=== PATIENT | male | born 1945 | race Caucasian/White ===

== ENCOUNTER → 2023-09-17 12:52 | Outpatient (REF) | payer MEDICARE, OTHER, SELFPAY | LOC: HWRCS 12:52 | PROVIDERS: ATTENDING PHYSICIAN Nuclear Medicine Nuclear Cardiology; FAMILY PHYSICIAN Family Medicine | DX: I50.33 Acute on chronic diastolic (congestive) heart failure (principal); I45.10 Unspecified right bundle-branch block; I25.10 Atherosclerotic heart disease of native coronary artery without angina pectoris | CPT/HCPCS: 93306 ==

== ENCOUNTER → 2023-10-18 09:05 | Outpatient (REF) | payer MEDICARE, OTHER, SELFPAY ==
[2023-10-18 09:38] VITALS: BP 134/69; BP_SYST 59
[2023-10-18 09:43] LABS: % Basophils 0.3 % (0-2); % Eosinophils 2.7 % (0-6); % Immature Granulocytes 0.3 % (0-0.5); % Lymphocytes 20.9 % (20.5-51.1); % Monocytes 14.2 % (1.7-9.3); % Neutrophils 61.6 % (42.2-75.2); Absolute Eosinophils 0.2 10^3/uL (0-0.7); Absolute Lymphocytes 1.6 10^3/uL (1.2-3.4); Absolute Monocytes 1.1 10^3/uL (0.1-0.6); Absolute Neutrophils 4.7 10^3/uL (1.4-6.5); Hemoglobin 12.1 g/dL (13.0-18.0); Mean Corp Hgb Conc. 33.6 g/dL (33.0-37.0); Mean Corpuscular Hgb 32.5 pg (27.0-31.0); Mean Corpuscular Volume 96.8 fL (80.0-94.0); Mean Platelet Volume 9.5 fL (7.4-10.4); Nucleated Red Blood Cells % 0 % (-); Platelet Count 198 10^3/uL (130-400); Red Blood Cell Count 3.72 10^6/uL (4.70-6.10); Red Cell Dist. Width 13.8 % (11.5-14.5); White Blood Cell Count 7.7 10^3/uL (4.8-10.8)
[2023-10-18 09:53] LABS: INR 1.14; PT 14.4 Sec (11.4-14.6)
[2023-10-18] MEDS: ATIVAN 0.5 MG IV (10:23)
[2023-10-18] MEDS: NSS (PRESERVATIVE FREE) 0.25 ML IV (10:24)
[2023-10-18 12:03] VITALS: BP 129/73
== END ==
LOC: RADI 09:05
PROVIDERS: ATTENDING PHYSICIAN Internal Medicine Hematology & Oncology; FAMILY PHYSICIAN Family Medicine; REFERRING PHYSICIAN Specialist
DX: D47.2 Monoclonal gammopathy (principal)
CPT/HCPCS: 88305; 88311; 88312; 36415; 38221; 77012; 85025; 85610; 88313

== ENCOUNTER → 2023-11-17 14:26 | Outpatient (REF) | payer MEDICARE, OTHER, SELFPAY ==
[2023-11-17 16:54] LABS: Folate > 20.0 ng/ml (2.76-20); Vitamin B12 650 pg/ml (239-931)
== END ==
LOC: OIDL 14:26
PROVIDERS: ATTENDING PHYSICIAN Internal Medicine Hematology & Oncology
DX: D47.2 Monoclonal gammopathy (principal); D51.9 Vitamin B12 deficiency anemia, unspecified
CPT/HCPCS: 82607; 82746

== ENCOUNTER 2024-04-20 18:42 | Emergency (ER) | payer MEDICARE, OTHER, SELFPAY ==
[2024-04-20 18:56] VITALS: BP 125/85
[2024-04-20 20:07] VITALS: BP 161/73
--- NOTE | 2024-04-20 23:17 | ED.GENMED ---
History of Present Illness
General
Chief Complaint: DVT/Possible Blood Clot
Time Seen by Provider: 04/20/24 21:54
History of Present Illness
History of Present Illness:
Pleasant 78-year-old male presents to the emergency department with right knee pain and swelling. He states that has been present for the last 24 hours. Denies trauma. He does have a history of DVT in the past. He is not on any anticoagulation.
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 Denies fever, chills, chest pain, or shortness of breath.
Past History
Past History
ED Past Medical History: CAD, GERD, HTN, Hypercholesterolemia, NIDDM, [place], Renal failure (Renal insufficiency) and Other (Gout, BPH)
ED Past Surgical History: Cardiac (PTCA with stent 2017) and Cholecystectomy
Social History
Tobacco: Former smoker (Quit cigarettes in 1975)
Alcohol: Occasional (Very rare alcohol use)
Drug: None
Personal:
Living: with family
Employment: Retired
Family History
Family History: Other (Noncontributory)
Phy Exam
Physical Exam
Physical Exam:
Physical Exam
Vital signs and allergy list reviewed and agreed with.
GENERAL: Alert , in minimal apparent distress
EYE: pupils equal, EOMI, anicteric
NECK: Supple, Trachea midline
ENT: mmm.
CARDIAC: Regular rate and rhythm . No M/R/G
LUNGS: Clear breath sounds bilaterally, no acute respiratory distress, no wheezes/rales/rhonchi
ABDOMEN: Soft, without focal tenderness, no r/g, no cvat. Normal BSx4q
NEUROLOGICAL: Alert and oriented, no focal neuro deficits
SKIN: Warm and dry, skin intact.
MUSCULOSKELETAL: No edema, well perfused. Moves all 4 extremities. Right knee has some midline tenderness. Negative hip rolling test. Negative Homans' sign.
PSYCH: Normal and appropriate interaction.
Course
Orders/Labs/Results
Orders:
Orders
04/20/24 20:15
Venous Doppler Lwr Ext Rt [US Periph Venous LOWER Ext RT] Urgent
Comment:
Reason For Exam: pain/swelling
04/20/24 22:36
Knee, Right 4 or More Views [CR Knee- Right 4 Or More View*] Urgent
Comment:
Reason For Exam: knee pain
Vital Signs
Initial and Last Documented VS:
Initial Vital Signs
Temp Pulse Resp BP Pulse Ox
98 F 82 16 125/85 98
04/20/24 18:56 04/20/24 18:56 04/20/24 18:56 04/20/24 18:56 04/20/24 18:56
Last Documented Vital Signs
Temp Pulse Resp BP Pulse Ox
98 F 79 16 156/86 97
04/20/24 18:56 04/20/24 23:35 04/20/24 23:35 04/20/24 23:35 04/20/24 23:35
MDM/Problems Addressed
Differential Diagnosis Includes:
Acute on chronic knee pain, exacerbation of low back pain with radiation down the right knee, DVT, Ambrosio's cyst, osteoarthritis
MDM/Problems Addressed:
78-year-old male history of back pain complains of right knee pain and swelling for the last 24 hours. He did have a history of DVT in the past. Reports no injury or trauma.
Chronic conditions affecting care:
Renal insufficiency therefore is unable to take NSAIDs
*Radiology
Radiology exam reviewed: radiology read reviewed (Osteoarthritis mild to moderate)
*Critical Care Note
Total Time (30-74mins, 75-104mins- exclusive of procedures): Not Applicable
Update Note
Update Note:
Ultrasound negative for DVT
ED Attending Note
-
Portions of this chart may have been created with voice recognition software.� Occasional wrong word or��sound alike� substitutions may have occurred due to the inherent limitations of voice recognition software.
Discharge Plan
Departure
Patient Disposition: Home (Routine Discharge)
Date of Disposition: 04/20/24
Time of Disposition: 23:18
Patient with high blood pressure during this ER visit?: Yes
Condition: Good
Discharge Problem:
Acute pain of right knee, Osteoarthritis, Chronic low back pain
Instructions: Osteoarthritis, Knee pain - ED discharge instructions, BLOOD PRESSURE
Prescriptions:
New
oxycodone-acetaminophen [Percocet] 5-325 mg Tablet
1 tab PO Q6HPRN PRN (Reason: pain) Qty: 10 0RF
No Action
atorvastatin 40 MG tablet
40 mg PO HS
carvedilol 3.125 MG tablet
3.125 mg PO BID
pantoprazole 40 MG tablet,delayed release (DR/EC)
40 mg PO DAILY
allopurinol 300 MG tablet
300 mg PO QPM
dutasteride [Avodart] 0.5 MG capsule
0.5 mg PO DAILY
aspirin 81 MG tablet,delayed release (DR/EC)
81 mg PO DAILY
furosemide 20 mg tablet
20 mg PO BID@0800,1400
Jardiance 10 mg tablet
10 mg PO DAILY 30 Days Qty: 30 0RF
multivitamin Tablet
1 tab PO DAILY
Referrals:
Moy Reynolds DO [Family Provider] -
Activity Restrictions/Additional Instructions:
Your prescriptions were sent electronically to the pharmacy that you specified.
It was a pleasure meeting you and taking part in your care. We hope for your continued healing and wellness.
Please read discharge instructions in their entirety. However, they are for general education and may not describe your exact diagnosis at discharge. Information on your ER visit and medical conditions were discussed with you along with appropriate
follow up information...
If indicated, please take your medications as instructed and indicated on discharge paperwork.
Please schedule a follow up appointment as directed. Call to schedule an appointment
Please return to the emergency department with ANY change in, persisting, or worsening of symptoms. If any of your symptoms do not improve, or persist, or become more severe within 6-12 hours, please return to the emergency department for further
care.
Please return to the emergency department if you develop a headache, neck pain/stiffness, fever greater than 100.4F, chest pain, shortness of breath, persistent nausea, vomiting, slurred speech, difficulty walking, numbness/tingling, weakness, signs
of infection or any other symptoms that are worrisome to you.
If you have any questions or concerns please do not hesitate to call the Hospital at or E-mail me directly at [email or web address]
Interventions
Interventions:
*Risk Screen - Suicide Last Done: 04/20/24 18:56
*General Assessment Last Done: 04/20/24 19:58
*Neglect/Abuse Screening Last Done: 04/20/24 18:56
ED- Fall Risk Assessment Last Done: 04/20/24 19:58
*ED COVID-19 Vaccine History Last Done: 04/20/24 19:58
*Nursing Disposition Last Done: 04/20/24 23:35
ED- Cardiac Assessment Last Done: 04/20/24 19:58
ED- Pulmonary Assessment Last Done: 04/20/24 19:58
ED-Peripheral Vascular Assessment Last Done: 04/20/24 19:58
ED-Skin Assessment Last Done: 04/20/24 19:58
Discharge Date and Time
Discharge Date/Time: 04/20/24 23:35
Print Language: GREENLANDIC
[2024-04-20 23:35] VITALS: BP 156/86
== END 2024-04-20 23:35 | disposition home or self-care (01) ==
LOC: EMR 18:42
PROVIDERS: EMERGENCY PHYSICIAN Student in an Organized Health Care Education/Training Program; FAMILY PHYSICIAN Family Medicine
DX: M25.561 Pain in right knee (principal); M19.90 Unspecified osteoarthritis, unspecified site; G89.29 Other chronic pain; M54.50 Low back pain, unspecified; R22.41 Localized swelling, mass and lump, right lower limb; I25.10 Atherosclerotic heart disease of native coronary artery without angina pectoris; K21.9 Gastro-esophageal reflux disease without esophagitis; E11.9 Type 2 diabetes mellitus without complications; I10 Essential (primary) hypertension; E78.00 Pure hypercholesterolemia, unspecified; I25.2 Old myocardial infarction; N40.0 Benign prostatic hyperplasia without lower urinary tract symptoms; N28.9 Disorder of kidney and ureter, unspecified; Z86.718 Personal history of other venous thrombosis and embolism; Z87.891 Personal history of nicotine dependence; Z90.49 Acquired absence of other specified parts of digestive tract; Z95.5 Presence of coronary angioplasty implant and graft
CPT/HCPCS: 99284; 73564; 93971

== ENCOUNTER → 2024-06-10 10:58 | Outpatient (REF) | payer MEDICARE, OTHER, SELFPAY | LOC: PAVMRI 10:58 | PROVIDERS: ATTENDING PHYSICIAN Anesthesiology; FAMILY PHYSICIAN Family Medicine | DX: M54.16 Radiculopathy, lumbar region (principal) | CPT/HCPCS: 72148 ==